=== PATIENT | female | born 1980 | race Two or more races ===

== ENCOUNTER → 2024-08-28 | Outpatient (CLI) | payer OTHER, SELFPAY ==
[2024-08-28 09:34] LABS: Cardiac Risk Estimate 3.5 RATIO (3.7-5.6); Cholesterol 201 mg/dL (132-200); Free T3 2.8 pg/mL (2.3-4.2); Free T4 (Free Thyroxine) 1.36 ng/dL (0.89-1.76); HDL Cholesterol 57 mg/dL (40-60); LDL Cholesterol,Calculated 134 mg/dL (0-130); Thyroid Stimulating Hormone 1.46 uIU/mL (0.55-4.78); Triglycerides 51 mg/dL (30-150)
[2024-09-08 06:48] LABS: TSI, Thyroid Stimulating Ig* <89 % baseline (<140); Thyrotropin-Binding Inhib Ig* <1.00 IU/L (< OR = 2.00)
== END | disposition home or self-care (01) ==
PROVIDERS: PCP Family Medicine; Referring Provider Internal Medicine; Visit Provider Internal Medicine
DX: E66.9 Obesity, unspecified (principal); E03.9 Hypothyroidism, unspecified; E05.00 Thyrotoxicosis with diffuse goiter without thyrotoxic crisis or storm
CPT/HCPCS: 36415; 80061; 83519; 84439; 84443; 84445; 84481

== ENCOUNTER → 2024-09-02 | Outpatient (CLI) | payer OTHER, SELFPAY ==
--- NOTE | 2024-09-02 07:03 | XR_ITS ---
Examination: Screening digital mammography, bilateral Computer aided detection 3-D breast Tomosynthesis, bilateral Date and time of exam: September 02, 2024 0711 hours Compared to mammograms dating to December 06, 2020 Indication: Screening Technique: Nonmagnified MLO, CC views of the breasts to been obtained, reconstructed from 3-D Tomosynthesis images. R2 computer aided detection program utilized for evaluation of suspicious masses and/or abnormal calcifications. 3-D Tomosynthesis images obtained. Findings: The breasts are heterogeneously dense, which may obscure small masses No interval suspicious masses Bilateral breast sonography today indicates numerous bilateral benign breast cysts no solid nodules Benign calcifications Impression: BI-RADS category II: Benign Findings. Recommend 1 year follow-up mammogram.
--- NOTE | 2024-09-02 07:30 | XR_ITS ---
Examination: Breast ultrasound complete, bilateral Date and time of exam: September 02, 2024 0711 hours INDICATIONS: Bilateral breast pain beginning 2 months ago Technique: Real-time grayscale ultrasonographic imaging bilateral breasts, including all 4 quadrants as well as nipple retroareolar and axillary regions. Findings: Sonographic images right breast Multiple benign cysts, all subcentimeter No solid nodules Sonographic images left breast Multiple benign cysts, the largest in the 4:00 position 13 x 6 x 10 mm No solid nodules IMPRESSION: BI-RADS Category 2: Benign findings
== END | disposition home or self-care (01) ==
LOC: CDIM 06:41
PROVIDERS: PCP Family Medicine; Referring Provider Specialist; Visit Provider Specialist
DX: Z12.31 Encounter for screening mammogram for malignant neoplasm of breast (principal); R92.323 Mammographic fibroglandular density, bilateral breasts; R92.1 Mammographic calcification found on diagnostic imaging of breast
CPT/HCPCS: 76641; 77063; 77067

== ENCOUNTER → 2024-09-17 | Outpatient (CLI) | payer OTHER, SELFPAY ==
[2024-09-17 08:35] LABS: Basophils % (Auto) 1 % (0-2.5); Eosinophils # (Auto) 0.1 Thou/mm3 (0.0-0.5); Eosinophils % (Auto) 2 % (0-10); Hematocrit 37.5 % (36.0-46.0); Hemoglobin 12.7 g/dL (12.0-16.0); Immature Granulocytes % (Auto) 0 % (0-0); Immature Granulocytes Auto 0.03 Thou/mm3 (0.00-0.00); Lymphocytes # (Auto) 1.5 Thou/mm3 (1.0-4.8); Lymphocytes % (Auto) 18 % (10-50); Mean Corpuscular HGB Conc 33.9 g/dl (31.0-37.0); Mean Corpuscular Volume 92 fL (80-100); Monocytes # (Auto) 0.6 Thou/mm3 (0.0-0.8); Monocytes % (Auto) 7 % (0-12); Neutrophils % (Auto) 73 % (37-80); Nucleated Red Blood Cell % 0 /100 WBC (0); Platelet Count 283 Thou/mm3 (140-440); RDW Standard Deviation 41.2 fL (36.4-46.3); White Blood Count 8.2 Thou/mm3 (3.6-11.0)
[2024-09-17 09:08] LABS: Alanine Aminotransferase 10 U/L (10-49); Albumin, Serum 4.1 gm/dL (3.5-5.0); Albumin/Globulin Ratio 1.6 (1.2-2.2); Alkaline Phosphatase 72 U/L (46-116); Anion Gap 3 (7-16); Aspartate Amino Transferase < 10 U/L (0-34); BUN/Creatinine Ratio 13 Ratio (12-20); Bilirubin,Total 0.7 mg/dL (0.3-1.2); Blood Urea Nitrogen 10 mg/dL (9-23); Calcium 8.9 mg/dL (8.3-10.6); Calcium (Corrected) 8.9 mg/dL (8.5-10.1); Carbon Dioxide 28.7 mMol/L (20.0-31.0); Chloride 107 mMol/L (98-107); Creatinine (Component) 0.8 mg/dL (0.6-1.3); Globulin 2.5 gm/dL (2.3-3.5); Glucose 89 mg/dL (74-106); Osmolality,Calculated 275 (275-295); Potassium 4.2 mMol/L (3.4-5.1); Sodium 139 mMol/L (136-145); Total Protein 6.6 gm/dL (5.7-8.2); eGFR > 60 See Note
== END | disposition home or self-care (01) ==
LOC: COPL 07:08
PROVIDERS: PCP Family Medicine; Referring Provider Nurse Practitioner Family; Visit Provider Nurse Practitioner Family
DX: Z00.00 Encounter for general adult medical examination without abnormal findings (principal); E61.2 Magnesium deficiency; Z13.89 Encounter for screening for other disorder
CPT/HCPCS: 36415; 80053; 83735; 85025

== ENCOUNTER → 2024-09-17 | Outpatient (CLI) | payer OTHER, SELFPAY ==
--- NOTE | 2024-09-17 16:30 | EKG_ITS ---
[facility] Test Date: 2024-09-17 Pat Name: KATINA GATES Department: Room: - Gender: Female [employer] Equipment Maintainer: CAROLE : 1980 Requested By: KODI GORE Order Number: [id number] Reading MD: KODI GORE Measurements Intervals [place] Rate: 93 P: 32 MD: 145 QRS: 30 QRSD: 89 T: 32 QT: 357 QTc: 444 Interpretive Statements SINUS RHYTHM LOW QRS VOLTAGE IN PRECORDIAL LEADS Compared to ECG 02/14/2023 21:02:01 No significant changes /[id number]/[id number].pdf
== END | disposition home or self-care (01) ==
LOC: CDIM 16:25 → SRTX 16:26
PROVIDERS: PCP Nurse Practitioner Family; Referring Provider Nurse Practitioner Family; Visit Provider Nurse Practitioner Family
DX: R07.9 Chest pain, unspecified (principal); R00.2 Palpitations
CPT/HCPCS: 93005

== ENCOUNTER → 2024-09-25 | Outpatient (CLI) | payer OTHER, SELFPAY ==
[2024-09-25 08:01] LABS: Misc Send Out* See Sep Rpt
== END | disposition home or self-care (01) ==
LOC: COPL 07:46
PROVIDERS: PCP Family Medicine; Referring Provider Nurse Practitioner Family; Visit Provider Nurse Practitioner Family
DX: E78.41 Elevated Lipoprotein(a) (principal)
CPT/HCPCS: 83695

== ENCOUNTER → 2024-10-22 | Outpatient (CLI) | payer OTHER, SELFPAY ==
[2024-10-22 08:31] LABS: Basophils % (Auto) 0 % (0-2.5); Eosinophils # (Auto) 0.1 Thou/mm3 (0.0-0.5); Eosinophils % (Auto) 1 % (0-10); Hemoglobin 12.5 g/dL (12.0-16.0); Immature Granulocytes % (Auto) 0 % (0-0); Immature Granulocytes Auto 0.03 Thou/mm3 (0.00-0.00); Lymphocytes # (Auto) 1.5 Thou/mm3 (1.0-4.8); Lymphocytes % (Auto) 19 % (10-50); Mean Corpuscular HGB Conc 34.7 g/dl (31.0-37.0); Mean Corpuscular Hemoglobin 30.7 pg (25.0-35.0); Mean Corpuscular Volume 89 fL (80-100); Monocytes # (Auto) 0.5 Thou/mm3 (0.0-0.8); Monocytes % (Auto) 7 % (0-12); Neutrophils # (Auto) 5.4 Thou/mm3 (1.8-7.7); Neutrophils % (Auto) 72 % (37-80); Nucleated Red Blood Cell % 0 /100 WBC (0); Platelet Count 292 Thou/mm3 (140-440); RDW Standard Deviation 40.5 fL (36.4-46.3); Red Blood Count 4.07 Miln/mm3 (4.00-5.20); White Blood Count 7.6 Thou/mm3 (3.6-11.0)
[2024-10-22 08:45] LABS: B-Type Natriuretic Peptide < 20 pg/mL (0-100)
[2024-10-22 08:50] LABS: Alanine Aminotransferase 12 U/L (10-49); Albumin, Serum 4.1 gm/dL (3.5-5.0); Albumin/Globulin Ratio 1.6 (1.2-2.2); Alkaline Phosphatase 74 U/L (46-116); Anion Gap 8 (7-16); Aspartate Amino Transferase 12 U/L (0-34); BUN/Creatinine Ratio 11 Ratio (12-20); Bilirubin,Total 0.7 mg/dL (0.3-1.2); Blood Urea Nitrogen 9 mg/dL (9-23); Calcium 9.2 mg/dL (8.3-10.6); Calcium (Corrected) 9.2 mg/dL (8.5-10.1); Carbon Dioxide 28.9 mMol/L (20.0-31.0); Cardiac Risk Estimate 3.6 RATIO (3.7-5.6); Chloride 101 mMol/L (98-107); Cholesterol 166 mg/dL (132-200); Creatinine (Component) 0.8 mg/dL (0.6-1.3); Globulin 2.6 gm/dL (2.3-3.5); Glucose 80 mg/dL (74-106); HDL Cholesterol 46 mg/dL (40-60); LDL Cholesterol,Calculated 110 mg/dL (0-130); Osmolality,Calculated 273 (275-295); Potassium 4.4 mMol/L (3.4-5.1); Sodium 138 mMol/L (136-145); Thyroid Stimulating Hormone 0.12 uIU/mL (0.55-4.78); Total Protein 6.7 gm/dL (5.7-8.2); Triglycerides 49 mg/dL (30-150); eGFR > 60 See Note
[2024-10-22 14:17] LABS: Cocci Serology, IgM Positive (Negative)
[2024-10-22 14:20] LABS: Cocid Sro, CF/ID (UCD) NO CHG* See Sep Rpt
== END | disposition home or self-care (01) ==
LOC: COPL 07:50
PROVIDERS: PCP Nurse Practitioner Family; Referring Provider Nurse Practitioner Family; Visit Provider Nurse Practitioner Family
DX: Z00.00 Encounter for general adult medical examination without abnormal findings (principal); E78.5 Hyperlipidemia, unspecified; E03.9 Hypothyroidism, unspecified; B38.89 Other forms of coccidioidomycosis; E11.9 Type 2 diabetes mellitus without complications; E61.2 Magnesium deficiency; E78.41 Elevated Lipoprotein(a); Z13.89 Encounter for screening for other disorder; Z13.0 Encounter for screening for diseases of the blood and blood-forming organs and certain disorders involving the immune mechanism; Z13.21 Encounter for screening for nutritional disorder
CPT/HCPCS: 36415; 80053; 80061; 83735; 83880; 84443; 85025; 86635

== ENCOUNTER → 2025-03-09 | Outpatient (CLI) | payer OTHER, SELFPAY ==
[2025-03-09 08:44] LABS: Basophils # (Auto) 0.1 Thou/mm3 (0.0-0.2); Basophils % (Auto) 1 % (0-2.5); Eosinophils # (Auto) 0.2 Thou/mm3 (0.0-0.5); Eosinophils % (Auto) 2 % (0-10); Hematocrit 37.8 % (36.0-46.0); Hemoglobin 12.9 g/dL (12.0-16.0); Immature Granulocytes % (Auto) 0 % (0-0); Immature Granulocytes Auto 0.04 Thou/mm3 (0.00-0.00); Lymphocytes # (Auto) 1.9 Thou/mm3 (1.0-4.8); Lymphocytes % (Auto) 20 % (10-50); Mean Corpuscular HGB Conc 34.1 g/dl (31.0-37.0); Mean Corpuscular Hemoglobin 31.2 pg (25.0-35.0); Mean Corpuscular Volume 92 fL (80-100); Monocytes # (Auto) 0.7 Thou/mm3 (0.0-0.8); Monocytes % (Auto) 7 % (0-12); Neutrophils # (Auto) 6.6 Thou/mm3 (1.8-7.7); Neutrophils % (Auto) 70 % (37-80); Nucleated Red Blood Cell % 0 /100 WBC (0); Platelet Count 302 Thou/mm3 (140-440); RDW Standard Deviation 40.7 fL (36.4-46.3); Red Blood Count 4.13 Miln/mm3 (4.00-5.20); White Blood Count 9.5 Thou/mm3 (3.6-11.0)
[2025-03-09 08:56] LABS: Alanine Aminotransferase 9 U/L (10-49); Albumin/Globulin Ratio 1.5 (1.2-2.2); Alkaline Phosphatase 78 U/L (46-116); Anion Gap 10 (7-16); Aspartate Amino Transferase 14 U/L (0-34); BUN/Creatinine Ratio 10 Ratio (12-20); Bilirubin,Total 0.5 mg/dL (0.3-1.2); Blood Urea Nitrogen 8 mg/dL (9-23); Calcium 8.2 mg/dL (8.3-10.6); Calcium (Corrected) 8.2 mg/dL (8.5-10.1); Carbon Dioxide 26.3 mMol/L (20.0-31.0); Cardiac Risk Estimate 3.7 RATIO (3.7-5.6); Chloride 107 mMol/L (98-107); Cholesterol 166 mg/dL (132-200); Creatinine (Component) 0.8 mg/dL (0.6-1.3); Free T3 2.7 pg/mL (2.3-4.2); Globulin 2.7 gm/dL (2.3-3.5); Glucose 93 mg/dL (74-106); HDL Cholesterol 45 mg/dL (40-60); LDL Cholesterol,Calculated 110 mg/dL (0-130); Osmolality,Calculated 283 (275-295); Potassium 3.7 mMol/L (3.4-5.1); Sodium 143 mMol/L (136-145); Thyroid Stimulating Hormone 0.34 uIU/mL (0.55-4.78); Total Protein 6.7 gm/dL (5.7-8.2); Triglycerides 57 mg/dL (30-150); eGFR > 60 See Note
[2025-03-09 09:55] LABS: Glucose Estimated Average 80 mg/dL (80-131); Hemoglobin A1C 4.4 % Hgb (4.8-6.0)
[2025-03-09 14:40] LABS: Cocci Serology, IgM Positive (Negative)
[2025-03-09 14:41] LABS: Cocid Sro, CF/ID (UCD) NO CHG* See Sep Rpt
[2025-03-16 06:42] LABS: TSI, Thyroid Stimulating Ig* <89 % baseline (<140); Thyrotropin-Binding Inhib Ig* <1.00 IU/L (< OR = 2.00)
== END | disposition home or self-care (01) ==
LOC: COPL 07:14
PROVIDERS: PCP Internal Medicine; Referring Provider Nurse Practitioner Family; Visit Provider Nurse Practitioner Family
DX: Z00.00 Encounter for general adult medical examination without abnormal findings (principal); B38.89 Other forms of coccidioidomycosis; Z13.29 Encounter for screening for other suspected endocrine disorder; E66.812 Obesity, class 2; E03.9 Hypothyroidism, unspecified; E05.00 Thyrotoxicosis with diffuse goiter without thyrotoxic crisis or storm; Z51.81 Encounter for therapeutic drug level monitoring
CPT/HCPCS: 36415; 80053; 80061; 82306; 83036; 83519; 84439; 84443; 84445; 84481; 84550; 85025; 86635

== ENCOUNTER 2025-03-13 06:40 | Day surgery (SDC) | payer OTHER, SELFPAY ==
[2025-03-12 16:53] LABS: HCG Qualitative,Urine Negative
[2025-03-13] VITALS (10 sets, daily range): BP systolic 110–136; BP diastolic 67–82; PULSE 67–115; RESP 13–21; TEMP 36.2–36.6; O2SAT 99–100; BMI 29.2
[2025-03-13] MEDS: SODIUM CHLORIDE 0.9% 500 ML 500 ML 100 ML IV (07:32)
[2025-03-13] MEDS: DiphenhydrAMINE INJ 50 MG/ML VIAL 25 MG IVP (07:33)
[2025-03-13] MEDS: fentaNYL CIT INJ 50 mCg/ML AMP 2ML (ASD USE ONLY) IVP (07:34)
[2025-03-13] MEDS: MIDAZOLAM INJ 1 MG/ML VIAL 2 ML (ASD USE ONLY) 2 MG IVP (07:38)
== END 2025-03-13 08:45 | disposition home or self-care (01) ==
PROVIDERS: PCP Family Medicine; Referring Provider Surgery; Visit Provider Surgery
PROC: 0DBE8ZX Excision of Large Intestine, Via Natural or Artificial Opening Endoscopic, Diagnostic (ICD-10-PCS; CPT 45380; principal; 2025-03-13 07:30)
DX: K64.1 Second degree hemorrhoids (principal); K64.4 Residual hemorrhoidal skin tags; K57.31 Diverticulosis of large intestine without perforation or abscess with bleeding
CPT/HCPCS: 45378; 81025; J1200; J2250; J3010; J7040

== ENCOUNTER → 2025-05-19 | Outpatient (CLI) | payer OTHER, SELFPAY ==
[2025-05-19 11:28] LABS: Basophils # (Auto) 0.1 Thou/mm3 (0.0-0.2); Basophils % (Auto) 1 % (0-2.5); Eosinophils # (Auto) 0.2 Thou/mm3 (0.0-0.5); Eosinophils % (Auto) 2 % (0-10); Hematocrit 38.0 % (36.0-46.0); Hemoglobin 12.5 g/dL (12.0-16.0); INR 1.0 (0.9-1.3); Immature Granulocytes Auto 0.03 Thou/mm3 (0.00-0.00); Lymphocytes # (Auto) 1.9 Thou/mm3 (1.0-4.8); Lymphocytes % (Auto) 21 % (10-50); Mean Corpuscular HGB Conc 32.9 g/dl (31.0-37.0); Mean Corpuscular Hemoglobin 30.9 pg (25.0-35.0); Mean Corpuscular Volume 94 fL (80-100); Monocytes # (Auto) 0.6 Thou/mm3 (0.0-0.8); Monocytes % (Auto) 7 % (0-12); Neutrophils # (Auto) 6.0 Thou/mm3 (1.8-7.7); Neutrophils % (Auto) 69 % (37-80); Nucleated Red Blood Cell # 0.00 Thou/mm3 (0.00-0.00); Nucleated Red Blood Cell % 0 /100 WBC (0); Partial Thromboplastin Time 30.3 Seconds (22.0-36.0); Platelet Count 294 Thou/mm3 (140-440); Prothrombin Time 10.7 Seconds (9.0-12.2); RDW Standard Deviation 45.4 fL (36.4-46.3); Red Blood Count 4.04 Miln/mm3 (4.00-5.20); White Blood Count 8.8 Thou/mm3 (3.6-11.0)
[2025-05-19 11:46] LABS: Alanine Aminotransferase < 7 U/L (10-49); Albumin, Serum 4.0 gm/dL (3.5-5.0); Albumin/Globulin Ratio 1.4 (1.2-2.2); Alkaline Phosphatase 61 U/L (46-116); Anion Gap 7 (7-16); Aspartate Amino Transferase 16 U/L (0-34); BUN/Creatinine Ratio 8 Ratio (12-20); Bilirubin,Total 0.6 mg/dL (0.3-1.2); Blood Urea Nitrogen 6 mg/dL (9-23); Calcium 8.8 mg/dL (8.3-10.6); Calcium (Corrected) 8.8 mg/dL (8.5-10.1); Carbon Dioxide 26.7 mMol/L (20.0-31.0); Chloride 107 mMol/L (98-107); Creatinine (Component) 0.8 mg/dL (0.6-1.3); Free T4 (Free Thyroxine) 0.87 ng/dL (0.89-1.76); Globulin 2.8 gm/dL (2.3-3.5); Glucose 84 mg/dL (74-106); Osmolality,Calculated 277 (275-295); Potassium 3.7 mMol/L (3.4-5.1); Sodium 141 mMol/L (136-145); Thyroid Stimulating Hormone 70.31 uIU/mL (0.55-4.78); Total Protein 6.8 gm/dL (5.7-8.2); eGFR > 60 See Note
[2025-05-25 06:51] LABS: T3,Total* 59 ng/dL (76-181)
== END | disposition home or self-care (01) ==
LOC: SLAB 08:32
PROVIDERS: PCP Family Medicine
DX: Z01.818 Encounter for other preprocedural examination (principal)
CPT/HCPCS: 36415; 80053; 84439; 84443; 84480; 85025; 85610; 85730

== ENCOUNTER → 2025-05-26 | Outpatient (CLI) | payer OTHER, SELFPAY ==
[2025-05-26 09:12] LABS: Free T3 1.3 pg/mL (2.3-4.2); Free T4 (Free Thyroxine) 0.63 ng/dL (0.89-1.76); Thyroid Stimulating Hormone 84.73 uIU/mL (0.55-4.78)
== END | disposition home or self-care (01) ==
LOC: SLAB 08:17
PROVIDERS: PCP Family Medicine
DX: Z01.818 Encounter for other preprocedural examination (principal)
CPT/HCPCS: 36415; 84439; 84443; 84481

== ENCOUNTER → 2025-06-05 | Outpatient (CLI) | payer OTHER, SELFPAY ==
[2025-06-05 09:36] LABS: Free T3 2.2 pg/mL (2.3-4.2); Free T4 (Free Thyroxine) 1.33 ng/dL (0.89-1.76); Thyroid Stimulating Hormone 17.00 uIU/mL (0.55-4.78)
== END | disposition home or self-care (01) ==
DX: Z01.818 Encounter for other preprocedural examination (principal)
CPT/HCPCS: 36415; 84439; 84443; 84481